=== PATIENT | female | born 1950 | race Caucasian/White ===

== ENCOUNTER 2020-10-30 01:04 | Inpatient (IN) | payer MEDICARE ==
[2020-10-30] MEDS ORDERED: Norepinephrine 8 MG/0.9% NS 250 ML ONE (01:12)
[2020-10-30 01:39] LABS: O2 Tension (PaO2), arterial 235.1 mmHg (> 70.0); pH, Arterial 6.77 (7.35-7.45)
[2020-10-30 01:40] LABS: Actual Bicarbonate (HCO3a) 3.1 mEq/L (22-28); Base Excess (BEa) -30.5 mEq/L (-2.0 to +3.0); Carboxyhemoglobin (COHb) 0.1 gm% (0.0-3.0); Hemoglobin (Hb) 9.6 g/dL (12.0-16.0); Potassium - ABG Lab 5.27 mmol/L (3.70-5.30)
[2020-10-30 01:41] LABS: Analyzer IN Cardio ER; Calcium, Ionized (arterial) 1.03 mmol/L (1.12-1.30); Puncture Site RRA
[2020-10-30 02:07] LABS: ALT (SGPT) 23 U/L (8-55); AST (SGOT) 23 U/L (5-34); Albumin 2.4 g/dL (3.4-4.8); Alkaline Phosphatase 28 U/L (40-110); BUN (Urea Nitrogen) 109 mg/dL (9.8-20.1); Bilirubin, Total 0.3 mg/dL (0.2-1.2); Calc. Creatinine Clearance 0 mL/min (70-130); Calcium 7.3 mg/dL (7.8-10.44); Chloride 109 mmol/L (98-107); Globulin 2.4 g/dL (2.4-3.5); Glucose 146 mg/dL (80-115); Potassium 5.6 mmol/L (3.5-5.1); Protein, Total 4.8 g/dL (5.8-8.1); Sodium 145 mmol/L (136-145)
[2020-10-30 02:11] LABS: Carbon Dioxide Less than 8 mmol/L (23-31)
[2020-10-30] MEDS ORDERED: Ventilator Sedation Protocol 1 EACH FS SCH (02:14)
[2020-10-30] MEDS ORDERED: Norepinephrine 8 MG/0.9% NS 250 ML IVPB SCH (02:15)
[2020-10-30 02:29] LABS: HBSAg Index 0.25 S/CO (0-0.99); Hep B Core Total Ab Non-Reactive (NonReactive); Hep B Core Total Index 0.09 S/CO (0-0.79); Hep B Surf Ag Non-Reactive S/CO (NonReactive); Hep C IgG Ab Non-Reactive (NonReactive); Hep C Index 0.07 S/CO (0-0.79)
[2020-10-30] MEDS ORDERED: DISCONTINUE PREVIOUS NARCOTIC PAIN MEDICATIONS AND BENZODIAZEPINES FS SCH (02:30)
[2020-10-30] MEDS ORDERED: Fentanyl BOLUS 250 ML IVPB PRN (02:30)
[2020-10-30] MEDS ORDERED: Propofol BOLUS 1,000 MG/100 ML VIAL IV PRN (02:30)
[2020-10-30] MEDS ORDERED: Morphine 2 MG/ML VIAL SLOW IVP PRN (02:30)
[2020-10-30] MEDS ORDERED: Propofol 1,000 MG/100 ML VIAL IV PRN (02:30)
[2020-10-30] MEDS ORDERED: Electrolyte Replacement Protocol 1 EACH FS ONE (03:00)
[2020-10-30 03:51] LABS: HBSAB Concentration 8.78 mIU/mL
[2020-10-30] MEDS ORDERED: Ondansetron ODT 4 MG TAB SL PRN (04:00)
[2020-10-30] MEDS ORDERED: Ondansetron PF 4 MG/2 ML Vial IVP PRN (04:00)
[2020-10-30] MEDS ORDERED: Acetaminophen 325 MG TAB PO PRN (04:00)
[2020-10-30 04:31] LABS: Bilirubin Negative (Negative); Blood, Urine 2+ (Negative); Clarity Clear (Clear); Glucose, Urine (Dipstick) 50 mg/dL (Negative); Ketone, Urine 20 mg/dL (Negative); Leukocyte Negative Leu/uL (Negative); Nitrite Negative (Negative); Protein, Urine (Dipstick) 50 mg/dL (Neg-Trace); Urobilinogen Normal mg/dL (Less than 2); pH, Urine 5.5 (5.0-9.0)
[2020-10-30 04:32] LABS: Bacteria/HPF 1+ HPF (None Seen)
[2020-10-30 04:45] LABS: Creatinine, Urine Less than 20.00 mg/dL (47-110); Sodium, Urine 136 mmol/L (Not Available); Urea Nitrogen, Random Urine 150 mg/dl
[2020-10-30] MEDS ORDERED: Dextrose 50% Abboject 50 ML SYRINGE SLOW IVP PRN (05:27)
[2020-10-30] MEDS ORDERED: Dextrose 5% in Water 1,000 ML IV PRN (05:27)
[2020-10-30] MEDS ORDERED: HumaLOG 300 UNITS/3 ML VIAL SC PRN (05:27)
[2020-10-30] MEDS ORDERED: Lactated Ringer's 1,000 ML IV SCH (05:45)
[2020-10-30] MEDS ORDERED: Cefepime 2 GM in Sodium Chloride 0.9% 100 ML IVPB SCH (06:00)
[2020-10-30 06:18] LABS: Band 17 % (5-11); Hemoglobin 10.8 g/dL (12.0-16.0); Lymphocytes 11 % (21-51); MDiff Complete? YES; Mean Corpuscular HGB CONC 32.4 g/dL (32.0-36.0); Mean Corpuscular Hemoglobin 30.6 pg (27.0-31.0); Mean Corpuscular Volume 94.3 fL (78.0-98.0); Monocytes 5 % (0-10); Neutrophil 67 % (42-75); Platelet Count 357 thou/uL (130-400); Platelet Morphology Comment Appears Adequate; RBC Distribution Width 12.7 % (11.5-14.5); Red Blood Cell (RBC) Count 3.53 mill/uL (4.20-5.40); White Blood Cell (WBC) Count 16.7 thou/uL (4.8-10.8)
[2020-10-30 06:28] LABS: Lactic Acid 10.8 mmol/L (0.5-2.2)
[2020-10-30 07:04] LABS: ALT (SGPT) 35 U/L (8-55); AST (SGOT) 44 U/L (5-34); Albumin 3.4 g/dL (3.4-4.8); Alkaline Phosphatase 43 U/L (40-110); Anion Gap 33 mmol/L (10-20); BUN (Urea Nitrogen) 55 mg/dL (9.8-20.1); Bilirubin, Total 0.5 mg/dL (0.2-1.2); Calc. Creatinine Clearance 15 mL/min (70-130); Calcium 7.9 mg/dL (7.8-10.44); Carbon Dioxide 13 mmol/L (23-31); Chloride 100 mmol/L (98-107); Glucose 127 mg/dL (80-115); Potassium 4.1 mmol/L (3.5-5.1); Protein, Total 6.4 g/dL (5.8-8.1); Sodium 142 mmol/L (136-145)
[2020-10-30] MEDS: Fentanyl CADD 100 ML IV SCH (08:50)
[2020-10-30] MEDS ORDERED: Pantoprazole 40 MG VIAL IVP SCH ×2 (09:00→21:00)
[2020-10-30] MEDS: Lorazepam 2 MG/ML VIAL SLOW IVP PRN ×2 (10:48→12:34)
[2020-10-30] MEDS: Sodium Chloride 0.9% 1,000 ML IV SCH ×2 (10:51→17:10)
[2020-10-30] MEDS ORDERED: Sodium Chloride 0.9% 1,000 ML IV SCH ×2 (11:30→14:45)
[2020-10-30 11:37] LABS: Actual Bicarbonate (HCO3a) 6.5 mEq/L (22-28); Base Excess (BEa) -19.3 mEq/L (-2.0 to +3.0); Calcium, Ionized (arterial) 0.92 mmol/L (1.12-1.30); O2 Tension (PaO2), arterial 198.1 mmHg (> 70.0); pH, Arterial 7.22 (7.35-7.45)
[2020-10-30 11:38] LABS: CO2 Tension 16.4 mmHg (35.0-45.0); Puncture Site RRA
[2020-10-30] MEDS: Albumin 25% 25 GM/100 ML BOT IVPB SCH ×3 (11:49→23:49)
[2020-10-30] MEDS: Vasopressin 20 UNIT, Admixture Fee 1 EACH in Sodium Chloride 0.9% 50 ML IV SCH ×2 (14:54→17:43)
[2020-10-30] MEDS: Sodium Bicarbonate 150 MEQ in Dextrose 5% in Water 1,000 ML IV SCH ×2 (14:56→19:55)
[2020-10-30 15:05] LABS: Actual Bicarbonate (HCO3a) 7.4 mEq/L (22-28); Calcium, Ionized (arterial) 0.92 mmol/L (1.12-1.30); Carboxyhemoglobin (COHb) 0.3 gm% (0.0-3.0); Hemoglobin (Hb) 7.9 g/dL (12.0-16.0); O2 Tension (PaO2), arterial 147.5 mmHg (> 70.0); Potassium - ABG Lab 3.74 mmol/L (3.70-5.30)
[2020-10-30 15:09] LABS: CO2 Tension 17.2 mmHg (35.0-45.0); Puncture Site RBA; pH, Arterial 7.25 (7.35-7.45)
[2020-10-30] MEDS ORDERED: Hydrocortisone Sod Succ/PF 100 mg/2 ml Vial ONE ×2 (15:24)
[2020-10-30] MEDS: Hydrocortisone Sod Succ/PF 100 mg/2 ml Vial IVP SCH ×2 (15:48→23:57)
[2020-10-30] MEDS ORDERED: Hydrocortisone Sod Succ/PF 500 mg/4 ml Vial SLOW IVP SCH (16:00)
[2020-10-30] MEDS ORDERED: EPINEPHrine 4 MG in Dextrose 5% in Water 250 ML IV SCH (16:15)
[2020-10-30 18:00] LABS: #Lymphocytes 0.8 thou/uL (1.20-3.40); #Monocytes 1.1 thou/uL (0.11-0.59); #Neutrophils 9.8 thou/uL (1.40-6.50); %Eosinophils 0.1 % (0.0-10.0); %Lymphocytes 7.1 % (21.0-51.0); %Monocytes 9.6 % (0.0-10.0); %Neutrophils 83.2 % (42.0-75.0); Hemoglobin 7.9 g/dL (12.0-16.0); Mean Corpuscular HGB CONC 33.5 g/dL (32.0-36.0); Mean Corpuscular Hemoglobin 31.4 pg (27.0-31.0); Mean Corpuscular Volume 93.6 fL (78.0-98.0); Mean Platelet Volume 8.3 fL (7.4-10.4); Platelet Count 234 thou/uL (130-400); RBC Distribution Width 12.9 % (11.5-14.5); White Blood Cell (WBC) Count 11.8 thou/uL (4.8-10.8)
[2020-10-30 18:14] LABS: BUN (Urea Nitrogen) 53 mg/dL (9.8-20.1); Calc. Creatinine Clearance 12 mL/min (70-130); Calcium 6.4 mg/dL (7.8-10.44); Carbon Dioxide Less than 8 mmol/L (23-31); Chloride 101 mmol/L (98-107); Glucose 271 mg/dL (80-115); Potassium 4.2 mmol/L (3.5-5.1); Sodium 138 mmol/L (136-145)
[2020-10-30] MEDS ORDERED: Sodium Bicarb 50 MEQ/50 ML Abboject 8.4% SYRINGE IVP SCH (18:30)
[2020-10-30] MEDS ORDERED: Sodium Bicarb 50 MEQ/50 ML Abboject 8.4% SYRINGE ONE ×2 (18:31→18:37)
[2020-10-30] MEDS: Pantoprazole 40 MG VIAL IVP SCH (20:04)
[2020-10-30 21:04] LABS: Lactic Acid 8.2 mmol/L (0.5-2.2)
[2020-10-30 21:32] LABS: Vancomycin, Random Less than 1.1 ug/mL (See Comment)
[2020-10-30] MEDS ORDERED: Vancomycin 1 GM in Premix Bag 1 BAG IVPB SCH (22:00)
[2020-10-30] MEDS ORDERED: Vancomycin HCl 1 GM in Premix Bag 1 BAG IVPB SCH (22:00)
[2020-10-30] MEDS: Cefepime 1 GM in Sodium Chloride 0.9% 100 ML IVPB SCH (23:57)
[2020-10-31] MEDS: Vasopressin 20 UNIT, Admixture Fee 1 EACH in Sodium Chloride 0.9% 50 ML IV SCH (00:20)
[2020-10-31] MEDS: HumaLOG 300 UNITS/3 ML VIAL SC PRN ×6 (00:57→20:48)
[2020-10-31] MEDS: Sodium Bicarbonate 150 MEQ in Dextrose 5% in Water 1,000 ML IV SCH ×2 (02:17→08:10)
[2020-10-31 02:38] LABS: #Basophils 0.1 thou/uL (0.0-0.2); #Lymphocytes 0.9 thou/uL (1.20-3.40); #Monocytes 0.5 thou/uL (0.11-0.59); #Neutrophils 7.3 thou/uL (1.40-6.50); %Basophils 0.9 % (0.0-1.0); %Lymphocytes 10.4 % (21.0-51.0); %Monocytes 6.2 % (0.0-10.0); %Neutrophils 82.5 % (42.0-75.0); Hemoglobin 8.4 g/dL (12.0-16.0); Mean Corpuscular HGB CONC 34.3 g/dL (32.0-36.0); Mean Corpuscular Hemoglobin 31.1 pg (27.0-31.0); Mean Corpuscular Volume 90.9 fL (78.0-98.0); Mean Platelet Volume 8.6 fL (7.4-10.4); Platelet Count 195 thou/uL (130-400); RBC Distribution Width 12.9 % (11.5-14.5); Red Blood Cell (RBC) Count 2.71 mill/uL (4.20-5.40); White Blood Cell (WBC) Count 8.8 thou/uL (4.8-10.8)
[2020-10-31 03:05] LABS: ALT (SGPT) 28 U/L (8-55); AST (SGOT) 33 U/L (5-34); Albumin 3.4 g/dL (3.4-4.8); Alkaline Phosphatase 25 U/L (40-110); Anion Gap 34 mmol/L (10-20); BUN (Urea Nitrogen) 58 mg/dL (9.8-20.1); Bilirubin, Total 0.5 mg/dL (0.2-1.2); Calc. Creatinine Clearance 12 mL/min (70-130); Carbon Dioxide 14 mmol/L (23-31); Chloride 92 mmol/L (98-107); Globulin 1.5 g/dL (2.4-3.5); Glucose 458 mg/dL (80-115); Potassium 3.2 mmol/L (3.5-5.1); Protein, Total 4.9 g/dL (5.8-8.1); Sodium 137 mmol/L (136-145)
[2020-10-31] MEDS: Albumin 25% 25 GM/100 ML BOT IVPB SCH ×2 (05:43→11:36)
[2020-10-31 07:04] LABS: Base Excess (BEa) 1.8 mEq/L (-2.0 to +3.0); Calcium, Ionized (arterial) 0.73 mmol/L (1.12-1.30); Carboxyhemoglobin (COHb) 0.3 gm% (0.0-3.0); O2 Tension (PaO2), arterial 99.3 mmHg (> 70.0); Potassium - ABG Lab 2.67 mmol/L (3.70-5.30)
[2020-10-31 08:01] LABS: ALV-art Gradient 162.525 mmHg (0-20); CO2 Tension 18.7 mmHg (35.0-45.0); Puncture Site Arterial Line; pH, Arterial 7.67 (7.35-7.45)
[2020-10-31] MEDS: Hydrocortisone Sod Succ/PF 100 mg/2 ml Vial IVP SCH ×3 (09:13→23:53)
[2020-10-31] MEDS: Pantoprazole 40 MG VIAL IVP SCH ×2 (09:23→20:42)
[2020-10-31] MEDS: Sodium Chloride 0.45% 1,000 ML IV SCH ×2 (11:29→20:41)
[2020-10-31 14:46] LABS: Lactic Acid 9.9 mmol/L (0.5-2.2)
[2020-10-31] MEDS: Lorazepam 2 MG/ML VIAL SLOW IVP PRN (15:27)
[2020-10-31 21:22] LABS: Vancomycin, Random 12.3 ug/mL (See Comment)
[2020-10-31] MEDS ORDERED: Vancomycin 1 GM in Premix Bag 1 BAG IVPB SCH (22:00)
[2020-10-31] MEDS: Cefepime 1 GM in Sodium Chloride 0.9% 100 ML IVPB SCH (23:00)
[2020-11-01] MEDS: HumaLOG 300 UNITS/3 ML VIAL SC PRN ×6 (00:15→22:25)
[2020-11-01] MEDS: Lorazepam 2 MG/ML VIAL SLOW IVP PRN ×4 (01:06→22:06)
[2020-11-01 03:40] LABS: #Lymphocytes 0.7 thou/uL (1.20-3.40); #Monocytes 0.7 thou/uL (0.11-0.59); #Neutrophils 7.8 thou/uL (1.40-6.50); %Basophils 0.1 % (0.0-1.0); %Lymphocytes 7.4 % (21.0-51.0); %Neutrophils 84.5 % (42.0-75.0); Hemoglobin 8.6 g/dL (12.0-16.0); Mean Corpuscular Hemoglobin 31.5 pg (27.0-31.0); Mean Platelet Volume 8.5 fL (7.4-10.4); Platelet Count 171 thou/uL (130-400); RBC Distribution Width 12.7 % (11.5-14.5); Red Blood Cell (RBC) Count 2.72 mill/uL (4.20-5.40); White Blood Cell (WBC) Count 9.2 thou/uL (4.8-10.8)
[2020-11-01 04:00] LABS: ALT (SGPT) 80 U/L (8-55); AST (SGOT) 131 U/L (5-34); Albumin 3.8 g/dL (3.4-4.8); Alkaline Phosphatase 26 U/L (40-110); Anion Gap 20 mmol/L (10-20); BUN (Urea Nitrogen) 62 mg/dL (9.8-20.1); Bilirubin, Total 0.7 mg/dL (0.2-1.2); Calc. Creatinine Clearance 13 mL/min (70-130); Calcium 6.1 mg/dL (7.8-10.44); Carbon Dioxide 33 mmol/L (23-31); Chloride 89 mmol/L (98-107); Globulin 1.7 g/dL (2.4-3.5); Glucose 181 mg/dL (80-115); Protein, Total 5.5 g/dL (5.8-8.1); Sodium 139 mmol/L (136-145)
[2020-11-01 04:08] LABS: Potassium 2.6 mmol/L (3.5-5.1)
[2020-11-01] MEDS: Sodium Chloride 0.45% 1,000 ML IV SCH ×3 (06:38→21:21)
[2020-11-01 08:00] LABS: Actual Bicarbonate (HCO3a) 30.1 mEq/L (22-28); Base Excess (BEa) 8.6 mEq/L (-2.0 to +3.0); CO2 Tension 29.7 mmHg (35.0-45.0); Calcium, Ionized (arterial) 0.66 mmol/L (1.12-1.30); Carboxyhemoglobin (COHb) 0.3 gm% (0.0-3.0); Hemoglobin (Hb) 8.8 g/dL (12.0-16.0); O2 Tension (PaO2), arterial 133.9 mmHg (> 70.0); Potassium - ABG Lab 2.78 mmol/L (3.70-5.30)
[2020-11-01] MEDS: Hydrocortisone Sod Succ/PF 100 mg/2 ml Vial IVP SCH ×3 (08:00→23:12)
[2020-11-01] MEDS: Pantoprazole 40 MG VIAL IVP SCH ×2 (08:00→20:33)
[2020-11-01 08:05] LABS: pH, Arterial 7.62 (7.35-7.45)
[2020-11-01 08:06] LABS: ALV-art Gradient 114.175 mmHg (0-20); Puncture Site Arterial Line
[2020-11-01] MEDS ORDERED: Potassium Chloride 20 MEQ TAB PO SCH (09:15)
[2020-11-01 10:25] LABS: Potassium 3.6 mmol/L (3.5-5.1)
[2020-11-01 10:59] LABS: Platelet Count 150 thou/uL (130-400)
[2020-11-01] MEDS ORDERED: Potassium Chloride 10 MEQ in Premix Bag 1 BAG IVPB SCH (11:00)
[2020-11-01 11:08] LABS: Fibrinogen 199 mg/dL (253-463); INR-International Normal Ratio 1.3; PTT 30.3 sec (22.9-36.1); Prothrombin Time 16.7 sec (12.0-14.7)
[2020-11-01 11:17] LABS: D-Dimer Test 13.01 *mcg/mL (0.27-0.43)
[2020-11-01] MEDS ORDERED: Fentanyl CADD 100 ML ONE (12:28)
[2020-11-01] MEDS: Fentanyl CADD 100 ML IV SCH (12:32)
[2020-11-01 12:49] LABS: FSP-Qualitative ABNORMAL (Normal); FSP-Semiquantitative >=20 & <40 mcg/mL (Less than 5)
[2020-11-01 14:49] LABS: Potassium 2.8 mmol/L (3.5-5.1)
[2020-11-01] MEDS ORDERED: Potassium Bicarbonate/Cit Ac 20 MEQ TAB PO SCH (16:00)
[2020-11-01 18:25] LABS: Magnesium 1.3 mg/dL (1.6-2.6); Potassium 3.1 mmol/L (3.5-5.1)
[2020-11-01] MEDS: Heparin 5,000 UNITS/ML VIAL SC SCH (21:19)
[2020-11-01 22:34] LABS: Vancomycin, Random 15.8 ug/mL (See Comment)
[2020-11-01] MEDS ORDERED: Vancomycin HCl 750 MG in Sodium Chloride 0.9% 250 ML 250 ML IVPB SCH (23:00)
[2020-11-01] MEDS: Cefepime 1 GM in Sodium Chloride 0.9% 100 ML IVPB SCH (23:19)
[2020-11-02] MEDS: HumaLOG 300 UNITS/3 ML VIAL SC PRN ×6 (00:23→21:41)
[2020-11-02 04:36] LABS: #Basophils 0.1 thou/uL (0.0-0.2); #Lymphocytes 0.5 thou/uL (1.20-3.40); #Monocytes 0.4 thou/uL (0.11-0.59); #Neutrophils 7.3 thou/uL (1.40-6.50); %Basophils 1.1 % (0.0-1.0); %Lymphocytes 5.5 % (21.0-51.0); %Monocytes 4.8 % (0.0-10.0); %Neutrophils 88.7 % (42.0-75.0); Hemoglobin 8.1 g/dL (12.0-16.0); Mean Corpuscular HGB CONC 34.1 g/dL (32.0-36.0); Mean Corpuscular Hemoglobin 31.4 pg (27.0-31.0); Mean Corpuscular Volume 92.1 fL (78.0-98.0); Mean Platelet Volume 8.2 fL (7.4-10.4); Platelet Count 142 thou/uL (130-400); RBC Distribution Width 12.6 % (11.5-14.5); Red Blood Cell (RBC) Count 2.58 mill/uL (4.20-5.40); White Blood Cell (WBC) Count 8.2 thou/uL (4.8-10.8)
[2020-11-02 04:49] LABS: ALT (SGPT) 89 U/L (8-55); AST (SGOT) 101 U/L (5-34); Albumin 3.8 g/dL (3.4-4.8); Alkaline Phosphatase 35 U/L (40-110); Anion Gap 14 mmol/L (10-20); BUN (Urea Nitrogen) 50 mg/dL (9.8-20.1); Bilirubin, Total 0.6 mg/dL (0.2-1.2); Calc. Creatinine Clearance 19 mL/min (70-130); Carbon Dioxide 33 mmol/L (23-31); Chloride 94 mmol/L (98-107); Glucose 233 mg/dL (80-115); Protein, Total 5.8 g/dL (5.8-8.1); Sodium 138 mmol/L (136-145)
[2020-11-02 04:52] LABS: Calcium 5.5 mg/dL (7.8-10.44); Potassium 2.7 mmol/L (3.5-5.1)
[2020-11-02] MEDS ORDERED: Potassium Chloride 40 MEQ in Premix Bag 1 BAG IVPB SCH ×2 (05:00→15:45)
[2020-11-02] MEDS ORDERED: Calcium Gluc 4.6 MEQ/10 ML (100 MG/ML) SLOW IVP SCH (05:00)
[2020-11-02] MEDS ORDERED: Vancomycin HCl 500 MG in Sodium Chloride 0.9% 100 ML IVPB SCH (05:15)
[2020-11-02] MEDS ORDERED: Magnesium 2 GM/50 ML 2 GM in Premix Bag 1 BAG IVPB SCH (07:00)
[2020-11-02 07:28] LABS: Actual Bicarbonate (HCO3a) 32.3 mEq/L (22-28); Base Excess (BEa) 8.2 mEq/L (-2.0 to +3.0); CO2 Tension 43.2 mmHg (35.0-45.0); Calcium, Ionized (arterial) 0.75 mmol/L (1.12-1.30); Carboxyhemoglobin (COHb) 0.3 gm% (0.0-3.0); Hemoglobin (Hb) 8.8 g/dL (12.0-16.0); O2 Tension (PaO2), arterial 123.8 mmHg (> 70.0); Potassium - ABG Lab 3.02 mmol/L (3.70-5.30); pH, Arterial 7.49 (7.35-7.45)
[2020-11-02 07:29] LABS: Puncture Site LRA
[2020-11-02] MEDS: Hydrocortisone Sod Succ/PF 100 mg/2 ml Vial IVP SCH ×3 (08:01→23:18)
[2020-11-02] MEDS: Heparin 5,000 UNITS/ML VIAL SC SCH ×2 (08:01→19:48)
[2020-11-02] MEDS: Pantoprazole 40 MG VIAL IVP SCH ×2 (08:02→19:48)
[2020-11-02] MEDS: Sodium Chloride 0.45% 1,000 ML IV SCH ×2 (09:39→18:10)
[2020-11-02 15:06] LABS: Potassium 2.3 mmol/L (3.5-5.1)
[2020-11-02] MEDS: Lorazepam 2 MG/ML VIAL SLOW IVP PRN ×2 (19:30→21:39)
[2020-11-02] MEDS ORDERED: Fentanyl CADD 100 ML ONE (19:39)
[2020-11-02] MEDS: Fentanyl CADD 100 ML IV SCH (19:47)
[2020-11-02] MEDS: Sodium Chloride 0.9% (PF) 10 ML VIAL FS PRN (19:48)
[2020-11-02] MEDS: Potassium Chloride 40 MEQ in Premix Bag 1 BAG IVPB SCH (19:51)
[2020-11-02 20:45] LABS: Potassium 2.9 mmol/L (3.5-5.1)
[2020-11-02 22:30] LABS: Vancomycin, Random 15.2 ug/mL (See Comment)
[2020-11-02] MEDS ORDERED: Vancomycin HCl 750 MG in Sodium Chloride 0.9% 250 ML 250 ML IVPB SCH (23:00)
[2020-11-02] MEDS: Cefepime 1 GM in Sodium Chloride 0.9% 100 ML IVPB SCH (23:18)
[2020-11-03 05:48] LABS: Anion Gap 13 mmol/L (10-20); BUN (Urea Nitrogen) 40 mg/dL (9.8-20.1); Calc. Creatinine Clearance 32 mL/min (70-130); Carbon Dioxide 28 mmol/L (23-31); Chloride 103 mmol/L (98-107); Glucose 248 mg/dL (80-115); Sodium 141 mmol/L (136-145)
[2020-11-03 05:50] LABS: Calcium 5.7 mg/dL (7.8-10.44); Potassium 2.8 mmol/L (3.5-5.1)
[2020-11-03] MEDS: Lorazepam 2 MG/ML VIAL SLOW IVP PRN (06:38)
[2020-11-03] MEDS: Sodium Chloride 0.45% 1,000 ML IV SCH ×2 (06:40→17:47)
[2020-11-03] MEDS: HumaLOG 300 UNITS/3 ML VIAL SC PRN ×4 (06:50→20:43)
[2020-11-03] MEDS: Heparin 5,000 UNITS/ML VIAL SC SCH ×2 (08:30→20:41)
[2020-11-03] MEDS: Hydrocortisone Sod Succ/PF 100 mg/2 ml Vial IVP SCH ×2 (08:30→16:09)
[2020-11-03] MEDS: Pantoprazole 40 MG VIAL IVP SCH ×2 (08:32→20:42)
[2020-11-03] MEDS: Potassium Chloride 40 MEQ in Premix Bag 1 BAG IVPB SCH ×2 (08:33→20:52)
[2020-11-03] MEDS: Haloperidol Lactate 5 MG/ML VIAL IM SCH ×2 (16:09→20:41)
[2020-11-03] MEDS: Sodium Chloride 0.9% (PF) 10 ML VIAL FS PRN (20:42)
[2020-11-04] MEDS: Hydrocortisone Sod Succ/PF 100 mg/2 ml Vial IVP SCH ×3 (00:51→15:26)
[2020-11-04] MEDS: Cefepime 1 GM in Sodium Chloride 0.9% 100 ML IVPB SCH (00:51)
[2020-11-04] MEDS: Haloperidol Lactate 5 MG/ML VIAL IM SCH ×4 (02:54→20:30)
[2020-11-04 06:53] LABS: #Lymphocytes 0.5 thou/uL (1.20-3.40); #Monocytes 0.7 thou/uL (0.11-0.59); %Eosinophils 0.1 % (0.0-10.0); %Lymphocytes 4.2 % (21.0-51.0); %Monocytes 5.4 % (0.0-10.0); %Neutrophils 90.3 % (42.0-75.0); Hemoglobin 8.6 g/dL (12.0-16.0); Mean Corpuscular HGB CONC 33.1 g/dL (32.0-36.0); Mean Corpuscular Hemoglobin 31.2 pg (27.0-31.0); Mean Corpuscular Volume 94.4 fL (78.0-98.0); Mean Platelet Volume 9.2 fL (7.4-10.4); Platelet Count 175 thou/uL (130-400); RBC Distribution Width 12.8 % (11.5-14.5); Red Blood Cell (RBC) Count 2.76 mill/uL (4.20-5.40); White Blood Cell (WBC) Count 12.1 thou/uL (4.8-10.8)
[2020-11-04 07:03] LABS: Anion Gap 13 mmol/L (10-20); BUN (Urea Nitrogen) 39 mg/dL (9.8-20.1); Calc. Creatinine Clearance 40 mL/min (70-130); Carbon Dioxide 29 mmol/L (23-31); Chloride 102 mmol/L (98-107); Glucose 223 mg/dL (80-115); Potassium 3.4 mmol/L (3.5-5.1); Sodium 141 mmol/L (136-145)
[2020-11-04 07:06] LABS: Calcium 5.6 mg/dL (7.8-10.44)
[2020-11-04] MEDS: Fentanyl CADD 100 ML IV SCH (07:06)
[2020-11-04] MEDS: HumaLOG 300 UNITS/3 ML VIAL SC PRN ×4 (07:10→20:32)
[2020-11-04] MEDS: Heparin 5,000 UNITS/ML VIAL SC SCH ×2 (08:38→20:30)
[2020-11-04] MEDS: Pantoprazole 40 MG VIAL IVP SCH (08:38)
[2020-11-04] MEDS: Potassium Chloride 40 MEQ in Premix Bag 1 BAG IVPB SCH ×2 (08:39→20:30)
[2020-11-04] MEDS: Lorazepam 2 MG/ML VIAL SLOW IVP PRN ×2 (09:12→13:30)
[2020-11-04] MEDS: Sodium Chloride 0.45% 1,000 ML IV SCH ×2 (12:12→20:41)
[2020-11-04] MEDS: Pantoprazole 40 MG GRANULES PACKET PER TUBE SCH (20:30)
[2020-11-05] MEDS: Lorazepam 2 MG/ML VIAL SLOW IVP PRN ×3 (00:56→10:08)
[2020-11-05] MEDS: Cefepime 1 GM in Sodium Chloride 0.9% 100 ML IVPB SCH (00:57)
[2020-11-05] MEDS: Hydrocortisone Sod Succ/PF 100 mg/2 ml Vial IVP SCH ×3 (00:57→21:37)
[2020-11-05] MEDS: HumaLOG 300 UNITS/3 ML VIAL SC PRN ×5 (01:27→21:50)
[2020-11-05] MEDS: Haloperidol Lactate 5 MG/ML VIAL IM SCH ×2 (03:56→08:35)
[2020-11-05 04:28] LABS: #Lymphocytes 0.8 thou/uL (1.20-3.40); #Monocytes 0.5 thou/uL (0.11-0.59); #Neutrophils 8.8 thou/uL (1.40-6.50); %Basophils 0.1 % (0.0-1.0); %Lymphocytes 7.4 % (21.0-51.0); %Monocytes 4.8 % (0.0-10.0); %Neutrophils 87.7 % (42.0-75.0); Hemoglobin 8.7 g/dL (12.0-16.0); Mean Corpuscular HGB CONC 31.9 g/dL (32.0-36.0); Mean Corpuscular Hemoglobin 30.2 pg (27.0-31.0); Mean Corpuscular Volume 94.6 fL (78.0-98.0); Platelet Count 187 thou/uL (130-400); Red Blood Cell (RBC) Count 2.87 mill/uL (4.20-5.40)
[2020-11-05 04:41] LABS: Anion Gap 10 mmol/L (10-20); BUN (Urea Nitrogen) 33 mg/dL (9.8-20.1); Calc. Creatinine Clearance 61 mL/min (70-130); Carbon Dioxide 31 mmol/L (23-31); Chloride 106 mmol/L (98-107); Glucose 202 mg/dL (80-115); Magnesium 1.1 mg/dL (1.6-2.6); Potassium 3.2 mmol/L (3.5-5.1); Sodium 144 mmol/L (136-145)
[2020-11-05 04:45] LABS: Calcium 5.5 mg/dL (7.8-10.44)
[2020-11-05] MEDS ORDERED: Calcium Gluconate 4.6 MEQ in Sodium Chloride 0.9% 100 ML IVPB SCH (06:30)
[2020-11-05] MEDS: Heparin 5,000 UNITS/ML VIAL SC SCH ×2 (08:35→21:37)
[2020-11-05] MEDS: Potassium Chloride 40 MEQ in Premix Bag 1 BAG IVPB SCH ×2 (08:36→21:36)
[2020-11-05] MEDS: Pantoprazole 40 MG GRANULES PACKET PER TUBE SCH ×2 (08:37→21:37)
[2020-11-05] MEDS ORDERED: Fentanyl CADD 100 ML ONE (09:55)
[2020-11-05] MEDS: Sodium Chloride 0.45% 1,000 ML IV SCH (10:17)
[2020-11-05] MEDS ORDERED: Magnesium 2 GM/50 ML 2 GM in Premix Bag 1 BAG IVPB SCH (18:00)
[2020-11-05] MEDS ORDERED: Potassium Chloride 40 MEQ in Sodium Chloride 0.9% 250 ML 250 ML IVPB SCH (22:30)
[2020-11-06] MEDS: Lorazepam 2 MG/ML VIAL SLOW IVP PRN ×5 (00:07→21:18)
[2020-11-06] MEDS: Cefepime 1 GM in Sodium Chloride 0.9% 100 ML IVPB SCH ×2 (00:09→23:43)
[2020-11-06] MEDS: HumaLOG 300 UNITS/3 ML VIAL SC PRN ×3 (00:24→15:28)
[2020-11-06 05:11] LABS: Hemoglobin 8.3 g/dL (12.0-16.0); Mean Corpuscular HGB CONC 31.5 g/dL (32.0-36.0); Mean Corpuscular Hemoglobin 29.4 pg (27.0-31.0); Mean Corpuscular Volume 93.3 fL (78.0-98.0); Platelet Count 237 thou/uL (130-400); RBC Distribution Width 12.9 % (11.5-14.5); Red Blood Cell (RBC) Count 2.83 mill/uL (4.20-5.40); White Blood Cell (WBC) Count 10.5 thou/uL (4.8-10.8)
[2020-11-06 05:31] LABS: Anion Gap 12 mmol/L (10-20); BUN (Urea Nitrogen) 31 mg/dL (9.8-20.1); Calc. Creatinine Clearance 69 mL/min (70-130); Carbon Dioxide 29 mmol/L (23-31); Chloride 109 mmol/L (98-107); Glucose 137 mg/dL (80-115); Magnesium 1.2 mg/dL (1.6-2.6); Potassium 3.5 mmol/L (3.5-5.1); Sodium 146 mmol/L (136-145)
[2020-11-06 05:37] LABS: Band 2 % (5-11); Lymphocytes 6 % (21-51); MDiff Complete? YES; Monocytes 7 % (0-10); Neutrophil 85 % (42-75); Nucleated RBC 2 % (0)
[2020-11-06 05:48] LABS: Calcium 5.5 mg/dL (7.8-10.44)
[2020-11-06] MEDS: Sodium Chloride 0.45% 1,000 ML IV SCH (06:12)
[2020-11-06] MEDS ORDERED: Calcium Gluconate 4.6 MEQ in Sodium Chloride 0.9% 100 ML IVPB SCH ×2 (08:06→18:45)
[2020-11-06] MEDS ORDERED: Magnesium 2 GM/50 ML 4 GM in Premix Bag 1 BAG IVPB SCH (08:15)
[2020-11-06] MEDS ORDERED: Magnesium Sulfate 4 GM in Sodium Chloride 0.9% 250 ML 250 ML IVPB SCH (08:15)
[2020-11-06] MEDS: Heparin 5,000 UNITS/ML VIAL SC SCH ×2 (08:26→20:34)
[2020-11-06] MEDS: Hydrocortisone Sod Succ/PF 100 mg/2 ml Vial IVP SCH ×2 (08:26→20:32)
[2020-11-06] MEDS: Pantoprazole 40 MG GRANULES PACKET PER TUBE SCH ×2 (08:26→20:34)
[2020-11-06] MEDS: Potassium Chloride 40 MEQ in Sodium Chloride 0.9% 250 ML 250 ML IVPB SCH ×2 (12:58→21:18)
[2020-11-06 17:51] LABS: Potassium 3.5 mmol/L (3.5-5.1)
[2020-11-06 18:17] LABS: Calcium 5.6 mg/dL (7.8-10.44)
[2020-11-06 18:17] LABS: Phosphorus 2.2 mg/dL (2.3-4.7)
[2020-11-06] MEDS: NPH, Human Insulin Isophane 300 UNIT/3 ML VIAL SC SCH (20:34)
[2020-11-07] MEDS: HumaLOG 300 UNITS/3 ML VIAL SC PRN ×5 (04:20→21:34)
[2020-11-07 04:51] LABS: Anion Gap 12 mmol/L (10-20); BUN (Urea Nitrogen) 28 mg/dL (9.8-20.1); Calc. Creatinine Clearance 68 mL/min (70-130); Carbon Dioxide 26 mmol/L (23-31); Chloride 110 mmol/L (98-107); Glucose 207 mg/dL (80-115); Potassium 3.2 mmol/L (3.5-5.1); Sodium 145 mmol/L (136-145)
[2020-11-07 04:55] LABS: Calcium 5.6 mg/dL (7.8-10.44)
[2020-11-07 05:27] LABS: Band 13 % (5-11); Hemoglobin 9.2 g/dL (12.0-16.0); Lymphocytes 8 % (21-51); MDiff Complete? YES; Mean Corpuscular HGB CONC 32.9 g/dL (32.0-36.0); Mean Corpuscular Hemoglobin 30.7 pg (27.0-31.0); Mean Corpuscular Volume 93.2 fL (78.0-98.0); Mean Platelet Volume 8.7 fL (7.4-10.4); Monocytes 1 % (0-10); Neutrophil 78 % (42-75); Platelet Count 250 thou/uL (130-400); RBC Distribution Width 13.2 % (11.5-14.5); Red Blood Cell (RBC) Count 3.01 mill/uL (4.20-5.40); White Blood Cell (WBC) Count 8.5 thou/uL (4.8-10.8)
[2020-11-07] MEDS: Morphine 4 MG/ML VIAL SLOW IVP PRN ×2 (05:36→20:12)
[2020-11-07 07:17] LABS: Actual Bicarbonate (HCO3a) 27.7 mEq/L (22-28); Base Excess (BEa) 4.6 mEq/L (-2.0 to +3.0); CO2 Tension 34.9 mmHg (35.0-45.0); Calcium, Ionized (arterial) 0.73 mmol/L (1.12-1.30); Carboxyhemoglobin (COHb) 0.1 gm% (0.0-3.0); O2 Tension (PaO2), arterial 81.2 mmHg (> 70.0); Potassium - ABG Lab 3.22 mmol/L (3.70-5.30); pH, Arterial 7.52 (7.35-7.45)
[2020-11-07 07:19] LABS: ALV-art Gradient 160.375 mmHg (0-20); Puncture Site RRA
[2020-11-07] MEDS ORDERED: Potassium Chloride 20 MEQ TAB PO SCH (07:30)
[2020-11-07] MEDS ORDERED: Calcium Gluconate 4.6 MEQ in Sodium Chloride 0.9% 100 ML IVPB SCH (07:30)
[2020-11-07] MEDS: Hydrocortisone Sod Succ/PF 100 mg/2 ml Vial IVP SCH (08:23)
[2020-11-07] MEDS: Heparin 5,000 UNITS/ML VIAL SC SCH ×2 (08:23→20:12)
[2020-11-07] MEDS: Pantoprazole 40 MG GRANULES PACKET PER TUBE SCH ×2 (08:23→20:13)
[2020-11-07] MEDS ORDERED: Cholecalciferol (Vitamin D3) 400 UNITS TAB PO SCH (09:00)
[2020-11-07] MEDS: Potassium Chloride 40 MEQ in Sodium Chloride 0.9% 250 ML 250 ML IVPB SCH ×2 (09:25→21:39)
[2020-11-07] MEDS ORDERED: Potassium Phosphate 15 MMOL in Sodium Chloride 0.9% 250 ML 250 ML IVPB PRN (11:05)
[2020-11-07 11:54] LABS: Magnesium 1.3 mg/dL (1.6-2.6); Phosphorus 1.6 mg/dL (2.3-4.7)
[2020-11-07] MEDS: Lorazepam 2 MG/ML VIAL SLOW IVP PRN ×4 (12:11→23:21)
[2020-11-07] MEDS ORDERED: Ergocalciferol 1.25 MG(50,000 UNITS) CAP PO SCH (12:45)
[2020-11-07] MEDS ORDERED: Calcium Carbonate 500 MG ChewTAB PER TUBE SCH (15:00)
[2020-11-07] MEDS: PHOS-NAK 1 PKT PACK PO SCH ×2 (16:43→20:13)
[2020-11-07 17:06] LABS: Magnesium 1.2 mg/dL (1.6-2.6)
[2020-11-07 17:12] LABS: Phosphorus 2.1 mg/dL (2.3-4.7); Potassium 3.5 mmol/L (3.5-5.1)
[2020-11-07 17:13] LABS: Calcium 5.7 mg/dL (7.8-10.44)
[2020-11-07] MEDS ORDERED: Magnesium Sulfate 4 GM in Sodium Chloride 0.9% 250 ML 250 ML IVPB SCH (17:45)
[2020-11-07] MEDS: Calcium Carbonate 500 MG ChewTAB PER TUBE SCH (20:13)
[2020-11-07] MEDS: NPH, Human Insulin Isophane 300 UNIT/3 ML VIAL SC SCH (21:30)
[2020-11-08] MEDS: Cefepime 1 GM in Sodium Chloride 0.9% 100 ML IVPB SCH ×2 (00:41→23:26)
[2020-11-08] MEDS: Morphine 4 MG/ML VIAL SLOW IVP PRN (02:57)
[2020-11-08] MEDS: HumaLOG 300 UNITS/3 ML VIAL SC PRN ×6 (04:34→23:27)
[2020-11-08 04:42] LABS: Anion Gap 13 mmol/L (10-20); BUN (Urea Nitrogen) 27 mg/dL (9.8-20.1); Calc. Creatinine Clearance 56 mL/min (70-130); Carbon Dioxide 27 mmol/L (23-31); Chloride 112 mmol/L (98-107); Glucose 257 mg/dL (80-115); Magnesium 1.7 mg/dL (1.6-2.6); Potassium 3.6 mmol/L (3.5-5.1); Sodium 148 mmol/L (136-145)
[2020-11-08 04:59] LABS: Phosphorus 1.8 mg/dL (2.3-4.7)
[2020-11-08 05:00] LABS: Calcium 5.4 mg/dL (7.8-10.44)
[2020-11-08] MEDS: Magnesium 2 GM/50 ML 2 GM in Premix Bag 1 BAG IVPB PRN (05:05)
[2020-11-08 05:08] LABS: Band 23 % (5-11); Hemoglobin 7.9 g/dL (12.0-16.0); Lymphocytes 2 % (21-51); MDiff Complete? YES; Mean Corpuscular HGB CONC 33.1 g/dL (32.0-36.0); Mean Corpuscular Hemoglobin 30.8 pg (27.0-31.0); Mean Corpuscular Volume 93.3 fL (78.0-98.0); Mean Platelet Volume 8.1 fL (7.4-10.4); Monocytes 6 % (0-10); Neutrophil 68 % (42-75); Nucleated RBC 1 % (0); Platelet Count 278 thou/uL (130-400); RBC Distribution Width 13.7 % (11.5-14.5); Red Blood Cell (RBC) Count 2.57 mill/uL (4.20-5.40); White Blood Cell (WBC) Count 12.6 thou/uL (4.8-10.8)
[2020-11-08] MEDS ORDERED: Calcium Gluconate 4.6 MEQ in Sodium Chloride 0.9% 100 ML IVPB SCH (08:21)
[2020-11-08] MEDS ORDERED: Sodium Phosphate 15 MMOL in Sodium Chloride 0.9% 250 ML 250 ML IVPB SCH (08:30)
[2020-11-08] MEDS: NPH, Human Insulin Isophane 300 UNIT/3 ML VIAL SC SCH ×2 (08:59→20:28)
[2020-11-08] MEDS: Calcium Carbonate 500 MG ChewTAB PER TUBE SCH ×4 (09:04→20:27)
[2020-11-08] MEDS: Hydrocortisone Sod Succ/PF 100 mg/2 ml Vial IVP SCH (09:05)
[2020-11-08] MEDS: Pantoprazole 40 MG GRANULES PACKET PER TUBE SCH (09:05)
[2020-11-08] MEDS: PHOS-NAK 1 PKT PACK PO SCH ×3 (09:05→20:28)
[2020-11-08] MEDS: Heparin 5,000 UNITS/ML VIAL SC SCH ×2 (09:05→20:28)
[2020-11-08] MEDS ORDERED: Polyethylene Glycol 3350 17 GM Packet PER TUBE PRN (10:20)
[2020-11-08] MEDS: Senokot S 8.6-50 MG TAB PO SCH ×2 (10:51→20:52)
[2020-11-08] MEDS: Potassium Chloride 40 MEQ in Sodium Chloride 0.9% 250 ML 250 ML IVPB SCH ×2 (15:12→20:52)
[2020-11-08] MEDS ORDERED: Metolazone 5 MG TAB PO SCH (16:00)
[2020-11-08] MEDS ORDERED: Calcitriol 0.25 MCG CAP PO SCH (16:15)
[2020-11-08 17:04] LABS: Anion Gap 15 mmol/L (10-20); BUN (Urea Nitrogen) 23 mg/dL (9.8-20.1); Calc. Creatinine Clearance 59 mL/min (70-130); Carbon Dioxide 25 mmol/L (23-31); Chloride 112 mmol/L (98-107); Glucose 286 mg/dL (80-115); Potassium 3.6 mmol/L (3.5-5.1); Sodium 148 mmol/L (136-145)
[2020-11-08 17:14] LABS: Calcium 5.7 mg/dL (7.8-10.44)
[2020-11-08] MEDS: Lorazepam 2 MG/ML VIAL SLOW IVP PRN (20:52)
[2020-11-08] MEDS ORDERED: Famotidine/PF 20 mg/2ml Vial SLOW IVP SCH (21:00)
[2020-11-08] MEDS ORDERED: Calcium Gluc 4.6 MEQ/10 ML (100 MG/ML) SLOW IVP SCH (21:30)
[2020-11-08] MEDS ORDERED: Magnesium 5 GM/10 ML Abboject SYRINGE SLOW IVP SCH (21:30)
[2020-11-09] MEDS: Lorazepam 2 MG/ML VIAL SLOW IVP PRN (02:02)
[2020-11-09 03:34] LABS: #Lymphocytes 0.7 thou/uL (1.20-3.40); #Monocytes 1.1 thou/uL (0.11-0.59); #Neutrophils 11.9 thou/uL (1.40-6.50); %Eosinophils 0.3 % (0.0-10.0); %Lymphocytes 5.2 % (21.0-51.0); %Monocytes 7.9 % (0.0-10.0); %Neutrophils 86.6 % (42.0-75.0); Hemoglobin 8.2 g/dL (12.0-16.0); Mean Corpuscular HGB CONC 32.5 g/dL (32.0-36.0); Mean Corpuscular Hemoglobin 30.8 pg (27.0-31.0); Mean Corpuscular Volume 94.8 fL (78.0-98.0); Mean Platelet Volume 7.9 fL (7.4-10.4); Platelet Count 254 thou/uL (130-400); RBC Distribution Width 13.7 % (11.5-14.5); Red Blood Cell (RBC) Count 2.66 mill/uL (4.20-5.40); White Blood Cell (WBC) Count 13.8 thou/uL (4.8-10.8)
[2020-11-09 03:54] LABS: ALT (SGPT) 30 U/L (8-55); AST (SGOT) 29 U/L (5-34); Alkaline Phosphatase 57 U/L (40-110); Anion Gap 15 mmol/L (10-20); BUN (Urea Nitrogen) 24 mg/dL (9.8-20.1); Bilirubin, Total 0.8 mg/dL (0.2-1.2); CK (CPK) 1340 U/L (29-168); Calc. Creatinine Clearance 55 mL/min (70-130); Calcium 6.5 mg/dL (7.8-10.44); Carbon Dioxide 26 mmol/L (23-31); Chloride 111 mmol/L (98-107); Globulin 2.6 g/dL (2.4-3.5); Glucose 266 mg/dL (80-115); Lipase 178 U/L (8-78); Potassium 3.5 mmol/L (3.5-5.1); Protein, Total 5.6 g/dL (5.8-8.1); Sodium 148 mmol/L (136-145)
[2020-11-09] MEDS: HumaLOG 300 UNITS/3 ML VIAL SC PRN ×3 (04:14→21:04)
[2020-11-09] MEDS ORDERED: Calcium Gluconate 9.2 MEQ in Sodium Chloride 0.9% 100 ML IVPB SCH (05:59)
[2020-11-09] MEDS: Morphine 4 MG/ML VIAL SLOW IVP PRN ×2 (08:11→12:35)
[2020-11-09] MEDS: Hydrocortisone Sod Succ/PF 100 mg/2 ml Vial IVP SCH (09:14)
[2020-11-09] MEDS: Senokot S 8.6-50 MG TAB PO SCH ×2 (09:17→20:56)
[2020-11-09] MEDS: PHOS-NAK 1 PKT PACK PO SCH ×3 (09:17→17:19)
[2020-11-09] MEDS: Calcitriol 0.25 MCG CAP PO SCH (09:17)
[2020-11-09] MEDS: Calcium Carbonate 500 MG ChewTAB PER TUBE SCH ×4 (09:17→20:56)
[2020-11-09] MEDS: Heparin 5,000 UNITS/ML VIAL SC SCH (09:18)
[2020-11-09] MEDS: NPH, Human Insulin Isophane 300 UNIT/3 ML VIAL SC SCH ×2 (09:19→21:01)
[2020-11-09] MEDS: Potassium Chloride 40 MEQ in Sodium Chloride 0.9% 250 ML 250 ML IVPB SCH ×2 (11:23→20:57)
[2020-11-09] MEDS: Acetaminophen 650 MG Suppository PR PRN (12:14)
[2020-11-09] MEDS ORDERED: SUGAMMADEX SODIUM 200 MG/2 ML VIAL ONE (14:06)
[2020-11-09] MEDS ORDERED: Fentanyl 100 MCG/2 ML VIAL ONE ×2 (14:06→14:10)
[2020-11-09] MEDS ORDERED: Lidocaine 1% w/Epinephrine 1:100K 20 ML VIAL ONE (14:18)
[2020-11-09] MEDS ORDERED: Bupivacaine PF 0.5% 30 ML VIAL ONE (14:18)
[2020-11-09] MEDS ORDERED: Midazolam HCl 5 mg/5 ml Vial ONE (14:19)
[2020-11-09] MEDS ORDERED: Rocuronium Bromide 10 MG/ML (10ML VIAL) ONE (14:45)
[2020-11-09] MEDS ORDERED: PHENYLEPHRINE-NS 100 MCG/ML 10 ML SYRINGE ONE (14:45)
[2020-11-09] MEDS ORDERED: Calcium Gluconate 4.6 MEQ in Sodium Chloride 0.9% 100 ML IVPB SCH (16:20)
[2020-11-09 17:04] LABS: Calcium 6.9 mg/dL (7.8-10.44); Magnesium 1.4 mg/dL (1.6-2.6)
[2020-11-09 17:05] LABS: Phosphorus 3.7 mg/dL (2.3-4.7)
[2020-11-09] MEDS ORDERED: Magnesium Oxide 400 MG TAB PO SCH (17:15)
[2020-11-09] MEDS: Famotidine/PF 20 mg/2ml Vial SLOW IVP SCH (20:56)
[2020-11-10] MEDS: HumaLOG 300 UNITS/3 ML VIAL SC PRN ×2 (00:17→12:15)
[2020-11-10] MEDS: Morphine 4 MG/ML VIAL SLOW IVP PRN ×2 (02:47→03:57)
[2020-11-10 06:39] LABS: Hemoglobin 7.3 g/dL (12.0-16.0); Mean Corpuscular Hemoglobin 30.2 pg (27.0-31.0); Mean Corpuscular Volume 94.4 fL (78.0-98.0); Platelet Count 230 thou/uL (130-400); RBC Distribution Width 13.9 % (11.5-14.5); White Blood Cell (WBC) Count 10.6 thou/uL (4.8-10.8)
[2020-11-10 06:50] LABS: Phosphorus 2.9 mg/dL (2.3-4.7)
[2020-11-10 06:53] LABS: Anion Gap 13 mmol/L (10-20); BUN (Urea Nitrogen) 22 mg/dL (9.8-20.1); Calc. Creatinine Clearance 61 mL/min (70-130); Calcium 7.1 mg/dL (7.8-10.44); Carbon Dioxide 29 mmol/L (23-31); Chloride 109 mmol/L (98-107); Glucose 139 mg/dL (80-115); Magnesium 1.3 mg/dL (1.6-2.6); Potassium 3.2 mmol/L (3.5-5.1); Sodium 148 mmol/L (136-145)
[2020-11-10 06:54] LABS: Band 19 % (5-11); Eosinophils 2 % (0-10); Lymphocytes 11 % (21-51); MDiff Complete? YES; Metamyelocyte 1 % (0-0); Monocytes 1 % (0-10); Neutrophil 66 % (42-75); Nucleated RBC 1 % (0)
[2020-11-10] MEDS: Potassium Chloride 40 MEQ in Sodium Chloride 0.9% 250 ML 250 ML IVPB SCH (08:12)
[2020-11-10] MEDS: Magnesium 2 GM/50 ML 2 GM in Premix Bag 1 BAG IVPB PRN (08:12)
[2020-11-10] MEDS: PHOS-NAK 1 PKT PACK PO SCH ×3 (08:13→21:44)
[2020-11-10] MEDS: Calcitriol 0.25 MCG CAP PO SCH (08:13)
[2020-11-10] MEDS: Calcium Carbonate 500 MG ChewTAB PER TUBE SCH ×4 (08:13→21:40)
[2020-11-10] MEDS: Senokot S 8.6-50 MG TAB PO SCH ×2 (08:13→21:44)
[2020-11-10] MEDS: NPH, Human Insulin Isophane 300 UNIT/3 ML VIAL SC SCH ×2 (08:14→21:43)
[2020-11-10] MEDS ORDERED: Magnesium 2 GM/50 ML 2 GM in Premix Bag 1 BAG IVPB SCH ×2 (08:30→15:45)
[2020-11-10] MEDS ORDERED: Potassium Chloride 40 MEQ in Sodium Chloride 0.9% 250 ML 250 ML IVPB SCH (08:30)
[2020-11-10] MEDS: Metolazone 5 MG TAB PO SCH (08:44)
[2020-11-10] MEDS ORDERED: Hydrocortisone Sod Succ/PF 100 mg/2 ml Vial IVP SCH (09:00)
[2020-11-10] MEDS ORDERED: Electrolyte Replacement Protocol FS PRN (10:00)
[2020-11-10] MEDS: ALPRAZolam 0.25 MG TAB PER TUBE SCH ×3 (13:04→21:41)
[2020-11-10 15:26] LABS: Anion Gap 13 mmol/L (10-20); BUN (Urea Nitrogen) 20 mg/dL (9.8-20.1); Calc. Creatinine Clearance 65 mL/min (70-130); Carbon Dioxide 30 mmol/L (23-31); Chloride 106 mmol/L (98-107); Glucose 186 mg/dL (80-115); Magnesium 1.5 mg/dL (1.6-2.6); Potassium 3.2 mmol/L (3.5-5.1); Sodium 146 mmol/L (136-145)
[2020-11-10 15:33] LABS: Potassium 3.1 mmol/L (3.5-5.1)
[2020-11-10] MEDS ORDERED: Potassium Chloride 20 MEQ TAB PO SCH (15:45)
[2020-11-10] MEDS: Famotidine/PF 20 mg/2ml Vial SLOW IVP SCH (21:41)
[2020-11-10] MEDS: Heparin 5,000 UNITS/ML VIAL SC SCH (21:41)
[2020-11-11] MEDS ORDERED: Magnesium 2 GM/50 ML 2 GM in Premix Bag 1 BAG IVPB SCH ×2 (07:00→08:45)
[2020-11-11] MEDS: Acetaminophen 650 MG Suppository PR PRN (07:19)
[2020-11-11] MEDS: PHOS-NAK 1 PKT PACK PO SCH ×3 (08:09→20:55)
[2020-11-11] MEDS: Metolazone 5 MG TAB PO SCH (08:09)
[2020-11-11] MEDS: Senokot S 8.6-50 MG TAB PO SCH ×2 (08:09→20:55)
[2020-11-11] MEDS: Calcium Carbonate 500 MG ChewTAB PER TUBE SCH ×4 (08:09→20:55)
[2020-11-11] MEDS: Calcitriol 0.25 MCG CAP PO SCH (08:09)
[2020-11-11] MEDS: ALPRAZolam 0.25 MG TAB PER TUBE SCH ×3 (08:10→16:58)
[2020-11-11] MEDS: Heparin 5,000 UNITS/ML VIAL SC SCH ×2 (08:10→20:55)
[2020-11-11 09:05] LABS: #Eosinphils 0.1 thou/uL (0.0-0.7); #Lymphocytes 0.9 thou/uL (1.20-3.40); #Monocytes 1.2 thou/uL (0.11-0.59); #Neutrophils 8.8 thou/uL (1.40-6.50); %Basophils 0.3 % (0.0-1.0); %Eosinophils 0.8 % (0.0-10.0); %Lymphocytes 8.4 % (21.0-51.0); %Neutrophils 79.6 % (42.0-75.0); Hemoglobin 7.3 g/dL (12.0-16.0); Mean Corpuscular HGB CONC 33.5 g/dL (32.0-36.0); Mean Corpuscular Hemoglobin 31.8 pg (27.0-31.0); Mean Corpuscular Volume 94.9 fL (78.0-98.0); Mean Platelet Volume 7.6 fL (7.4-10.4); Platelet Count 256 thou/uL (130-400); RBC Distribution Width 13.3 % (11.5-14.5); Red Blood Cell (RBC) Count 2.31 mill/uL (4.20-5.40)
[2020-11-11] MEDS: NPH, Human Insulin Isophane 300 UNIT/3 ML VIAL SC SCH (09:09)
[2020-11-11 09:26] LABS: ALT (SGPT) 24 U/L (8-55); AST (SGOT) 27 U/L (5-34); Albumin 2.8 g/dL (3.4-4.8); Alkaline Phosphatase 62 U/L (40-110); Anion Gap 18 mmol/L (10-20); BUN (Urea Nitrogen) 17 mg/dL (9.8-20.1); Bilirubin, Total 0.7 mg/dL (0.2-1.2); Calc. Creatinine Clearance 63 mL/min (70-130); Calcium 7.1 mg/dL (7.8-10.44); Carbon Dioxide 25 mmol/L (23-31); Chloride 103 mmol/L (98-107); Globulin 2.7 g/dL (2.4-3.5); Glucose 229 mg/dL (80-115); Protein, Total 5.5 g/dL (5.8-8.1); Sodium 143 mmol/L (136-145)
[2020-11-11 09:29] LABS: Potassium 2.8 mmol/L (3.5-5.1)
[2020-11-11] MEDS: Meropenem 2 GM, Admixture Fee 1 EACH in Sodium Chloride 0.9% 100 ML IVPB SCH ×2 (09:43→16:51)
[2020-11-11] MEDS ORDERED: Potassium Chloride 80 MEQ in Premix Bag 1 BAG IVPB SCH (10:15)
[2020-11-11] MEDS ORDERED: Potassium Chloride 40 MEQ in Premix Bag 1 BAG IVPB SCH (11:00)
[2020-11-11] MEDS: HumaLOG 300 UNITS/3 ML VIAL SC PRN (12:56)
[2020-11-11 17:22] LABS: Anion Gap 12 mmol/L (10-20); BUN (Urea Nitrogen) 14 mg/dL (9.8-20.1); Calc. Creatinine Clearance 68 mL/min (70-130); Calcium 7.2 mg/dL (7.8-10.44); Carbon Dioxide 30 mmol/L (23-31); Chloride 105 mmol/L (98-107); Glucose 155 mg/dL (80-115); Phosphorus 2.8 mg/dL (2.3-4.7); Potassium 3.6 mmol/L (3.5-5.1); Potassium 3.7 mmol/L (3.5-5.1); Sodium 143 mmol/L (136-145)
[2020-11-11] MEDS: Famotidine/PF 20 mg/2ml Vial SLOW IVP SCH (20:56)
[2020-11-12] MEDS: ALPRAZolam 0.25 MG TAB PER TUBE SCH ×5 (00:48→20:47)
[2020-11-12] MEDS: NPH, Human Insulin Isophane 300 UNIT/3 ML VIAL SC SCH ×3 (01:11→20:48)
[2020-11-12] MEDS: Meropenem 2 GM, Admixture Fee 1 EACH in Sodium Chloride 0.9% 100 ML IVPB SCH ×3 (01:12→17:19)
[2020-11-12] MEDS ORDERED: Magnesium 2 GM/50 ML 2 GM in Premix Bag 1 BAG IVPB SCH ×2 (06:30→13:15)
[2020-11-12] MEDS: HumaLOG 300 UNITS/3 ML VIAL SC PRN ×3 (06:51→16:55)
[2020-11-12] MEDS ORDERED: Metolazone 5 MG TAB PO SCH (08:15)
[2020-11-12] MEDS: Calcitriol 0.25 MCG CAP PO SCH (08:23)
[2020-11-12] MEDS: PHOS-NAK 1 PKT PACK PO SCH ×3 (08:23→20:49)
[2020-11-12] MEDS: Calcium Carbonate 500 MG ChewTAB PER TUBE SCH ×4 (08:23→20:49)
[2020-11-12] MEDS: Senokot S 8.6-50 MG TAB PO SCH ×2 (08:24→20:48)
[2020-11-12] MEDS: Famotidine/PF 20 mg/2ml Vial SLOW IVP SCH ×2 (08:24→20:50)
[2020-11-12] MEDS: Heparin 5,000 UNITS/ML VIAL SC SCH ×2 (08:24→20:49)
[2020-11-12] MEDS ORDERED: Furosemide 40 MG/4 ML VIAL SLOW IVP SCH (10:30)
[2020-11-12 11:25] LABS: #Eosinphils 0.1 thou/uL (0.0-0.7); #Lymphocytes 0.6 thou/uL (1.20-3.40); #Monocytes 0.7 thou/uL (0.11-0.59); #Neutrophils 6.8 thou/uL (1.40-6.50); %Basophils 0.2 % (0.0-1.0); %Eosinophils 0.8 % (0.0-10.0); %Lymphocytes 7.9 % (21.0-51.0); %Monocytes 7.9 % (0.0-10.0); %Neutrophils 83.2 % (42.0-75.0); Hemoglobin 8.4 g/dL (12.0-16.0); Mean Corpuscular Hemoglobin 29.8 pg (27.0-31.0); Mean Corpuscular Volume 93.2 fL (78.0-98.0); Mean Platelet Volume 7.4 fL (7.4-10.4); Platelet Count 266 thou/uL (130-400); RBC Distribution Width 13.3 % (11.5-14.5); Red Blood Cell (RBC) Count 2.82 mill/uL (4.20-5.40); White Blood Cell (WBC) Count 8.2 thou/uL (4.8-10.8)
[2020-11-12 11:45] LABS: ALT (SGPT) 32 U/L (8-55); AST (SGOT) 36 U/L (5-34); Albumin 2.7 g/dL (3.4-4.8); Alkaline Phosphatase 69 U/L (40-110); Anion Gap 14 mmol/L (10-20); BUN (Urea Nitrogen) 13 mg/dL (9.8-20.1); Bilirubin, Total 0.7 mg/dL (0.2-1.2); Calc. Creatinine Clearance 70 mL/min (70-130); Calcium 7.5 mg/dL (7.8-10.44); Carbon Dioxide 29 mmol/L (23-31); Chloride 99 mmol/L (98-107); Globulin 2.9 g/dL (2.4-3.5); Glucose 183 mg/dL (80-115); Magnesium 1.9 mg/dL (1.6-2.6); Phosphorus 2.7 mg/dL (2.3-4.7); Protein, Total 5.6 g/dL (5.8-8.1); Sodium 139 mmol/L (136-145)
[2020-11-12 11:54] LABS: Potassium 2.9 mmol/L (3.5-5.1)
[2020-11-12] MEDS: Potassium Chloride 20 MEQ in Premix Bag 1 BAG IVPB SCH ×3 (13:25→18:06)
[2020-11-12] MEDS ORDERED: Potassium Chloride 20 MEQ in Premix Bag 1 BAG IVPB SCH (14:00)
[2020-11-12 21:55] LABS: Potassium 3.7 mmol/L (3.5-5.1)
[2020-11-13] MEDS: Meropenem 2 GM, Admixture Fee 1 EACH in Sodium Chloride 0.9% 100 ML IVPB SCH ×4 (01:44→18:44)
[2020-11-13] MEDS: HumaLOG 300 UNITS/3 ML VIAL SC PRN ×5 (01:54→22:04)
[2020-11-13 04:05] LABS: Hemoglobin 8.7 g/dL (12.0-16.0); Mean Corpuscular Hemoglobin 29.8 pg (27.0-31.0); Mean Platelet Volume 7.7 fL (7.4-10.4); Platelet Count 286 thou/uL (130-400); RBC Distribution Width 13.2 % (11.5-14.5); Red Blood Cell (RBC) Count 2.92 mill/uL (4.20-5.40)
[2020-11-13 04:15] LABS: Anion Gap 14 mmol/L (10-20); BUN (Urea Nitrogen) 13 mg/dL (9.8-20.1); Calc. Creatinine Clearance 60 mL/min (70-130); Calcium 7.8 mg/dL (7.8-10.44); Carbon Dioxide 30 mmol/L (23-31); Chloride 97 mmol/L (98-107); Glucose 170 mg/dL (80-115); Magnesium 1.7 mg/dL (1.6-2.6); Potassium 3.3 mmol/L (3.5-5.1); Sodium 138 mmol/L (136-145)
[2020-11-13 04:17] LABS: Phosphorus 2.9 mg/dL (2.3-4.7)
[2020-11-13 04:26] LABS: Band 6 % (5-11); Eosinophils 5 % (0-10); Lymphocytes 16 % (21-51); MDiff Complete? YES; Monocytes 12 % (0-10); Neutrophil 60 % (42-75); Reactive Lymphocytes 1 % (0-10)
[2020-11-13] MEDS ORDERED: Magnesium 2 GM/50 ML 2 GM in Premix Bag 1 BAG IVPB SCH (06:45)
[2020-11-13] MEDS ORDERED: Potassium Chloride 40 MEQ in Sodium Chloride 0.9% 250 ML 250 ML IVPB SCH (07:45)
[2020-11-13] MEDS: Calcitriol 0.25 MCG CAP PO SCH (09:19)
[2020-11-13] MEDS: ALPRAZolam 0.25 MG TAB PER TUBE SCH ×4 (09:19→22:06)
[2020-11-13] MEDS: Famotidine/PF 20 mg/2ml Vial SLOW IVP SCH ×2 (09:20→21:50)
[2020-11-13] MEDS: Heparin 5,000 UNITS/ML VIAL SC SCH ×2 (09:20→22:07)
[2020-11-13] MEDS: Calcium Carbonate 500 MG ChewTAB PER TUBE SCH ×4 (09:20→21:50)
[2020-11-13] MEDS: Senokot S 8.6-50 MG TAB PO SCH ×2 (09:20→22:06)
[2020-11-13] MEDS: PHOS-NAK 1 PKT PACK PO SCH ×3 (09:20→22:05)
[2020-11-13] MEDS: Furosemide 40 MG/4 ML VIAL SLOW IVP SCH (09:21)
[2020-11-13] MEDS: NPH, Human Insulin Isophane 300 UNIT/3 ML VIAL SC SCH ×2 (09:21→22:09)
[2020-11-13] MEDS ORDERED: Calcitriol 0.25 MCG CAP PO SCH (10:45)
[2020-11-13 17:15] LABS: Potassium 3.8 mmol/L (3.5-5.1)
[2020-11-14] MEDS: Meropenem 2 GM, Admixture Fee 1 EACH in Sodium Chloride 0.9% 100 ML IVPB SCH ×3 (01:15→16:48)
[2020-11-14 05:08] LABS: Hemoglobin 10.3 g/dL (12.0-16.0); Mean Corpuscular HGB CONC 31.7 g/dL (32.0-36.0); Mean Corpuscular Hemoglobin 29.6 pg (27.0-31.0); Mean Corpuscular Volume 93.5 fL (78.0-98.0); Mean Platelet Volume 7.5 fL (7.4-10.4); Platelet Count 331 thou/uL (130-400); RBC Distribution Width 13.4 % (11.5-14.5); Red Blood Cell (RBC) Count 3.47 mill/uL (4.20-5.40); White Blood Cell (WBC) Count 5.5 thou/uL (4.8-10.8)
[2020-11-14 05:32] LABS: Anion Gap 15 mmol/L (10-20); BUN (Urea Nitrogen) 18 mg/dL (9.8-20.1); Calc. Creatinine Clearance 51 mL/min (70-130); Carbon Dioxide 30 mmol/L (23-31); Chloride 95 mmol/L (98-107); Glucose 139 mg/dL (80-115); Magnesium 1.8 mg/dL (1.6-2.6); Potassium 3.9 mmol/L (3.5-5.1); Sodium 136 mmol/L (136-145)
[2020-11-14 05:33] LABS: Band 16 % (5-11); Eosinophils 7 % (0-10); Hypochromia SLIGHT = 6-15 cells (100X) (0-5/hpf); Lymphocytes 8 % (21-51); MDiff Complete? YES; Monocytes 1 % (0-10); Neutrophil 68 % (42-75)
[2020-11-14] MEDS ORDERED: Magnesium 2 GM/50 ML 2 GM in Premix Bag 1 BAG IVPB SCH (07:45)
[2020-11-14] MEDS: HumaLOG 300 UNITS/3 ML VIAL SC PRN ×2 (08:17→12:36)
[2020-11-14] MEDS: Furosemide 40 MG/4 ML VIAL SLOW IVP SCH (08:33)
[2020-11-14] MEDS: ALPRAZolam 0.25 MG TAB PER TUBE SCH ×4 (08:33→20:46)
[2020-11-14] MEDS: Calcitriol 0.25 MCG CAP PO SCH (08:33)
[2020-11-14] MEDS: Heparin 5,000 UNITS/ML VIAL SC SCH ×2 (08:33→20:48)
[2020-11-14] MEDS: Calcium Carbonate 500 MG ChewTAB PER TUBE SCH ×3 (08:33→20:47)
[2020-11-14] MEDS: Famotidine/PF 20 mg/2ml Vial SLOW IVP SCH ×2 (08:33→20:48)
[2020-11-14] MEDS: Senokot S 8.6-50 MG TAB PO SCH ×2 (08:34→20:47)
[2020-11-14] MEDS: PHOS-NAK 1 PKT PACK PO SCH ×2 (08:34→20:48)
[2020-11-14] MEDS: NPH, Human Insulin Isophane 300 UNIT/3 ML VIAL SC SCH ×2 (08:35→20:49)
[2020-11-15] MEDS: Meropenem 2 GM, Admixture Fee 1 EACH in Sodium Chloride 0.9% 100 ML IVPB SCH ×3 (01:02→17:02)
[2020-11-15 05:42] LABS: Phosphorus 4.6 mg/dL (2.3-4.7)
[2020-11-15 05:44] LABS: Anion Gap 12 mmol/L (10-20); BUN (Urea Nitrogen) 23 mg/dL (9.8-20.1); Calc. Creatinine Clearance 41 mL/min (70-130); Calcium 8.9 mg/dL (7.8-10.44); Carbon Dioxide 30 mmol/L (23-31); Chloride 95 mmol/L (98-107); Glucose 248 mg/dL (80-115); Magnesium 1.8 mg/dL (1.6-2.6); Sodium 134 mmol/L (136-145)
[2020-11-15 05:48] LABS: Eosinophils 3 % (0-10); Hemoglobin 9.2 g/dL (12.0-16.0); Lymphocytes 23 % (21-51); MDiff Complete? YES; Mean Corpuscular HGB CONC 33.1 g/dL (32.0-36.0); Mean Corpuscular Hemoglobin 30.6 pg (27.0-31.0); Mean Corpuscular Volume 92.6 fL (78.0-98.0); Mean Platelet Volume 7.6 fL (7.4-10.4); Monocytes 3 % (0-10); Neutrophil 69 % (42-75); Platelet Count 321 thou/uL (130-400); Platelet Morphology Comment Appears Adequate; RBC Distribution Width 13.3 % (11.5-14.5); White Blood Cell (WBC) Count 4.4 thou/uL (4.8-10.8)
[2020-11-15] MEDS ORDERED: Magnesium 2 GM/50 ML 2 GM in Premix Bag 1 BAG IVPB SCH (06:30)
[2020-11-15] MEDS: Potassium Chloride 20 MEQ in Premix Bag 1 BAG IVPB SCH ×2 (08:01→11:10)
[2020-11-15] MEDS: ALPRAZolam 0.25 MG TAB PER TUBE SCH ×4 (10:18→20:43)
[2020-11-15] MEDS: PHOS-NAK 1 PKT PACK PO SCH ×2 (10:18→20:44)
[2020-11-15] MEDS: Calcitriol 0.25 MCG CAP PO SCH (10:18)
[2020-11-15] MEDS: Senokot S 8.6-50 MG TAB PO SCH ×2 (10:18→20:44)
[2020-11-15] MEDS: Calcium Carbonate 500 MG ChewTAB PER TUBE SCH ×3 (10:18→20:44)
[2020-11-15] MEDS: Famotidine/PF 20 mg/2ml Vial SLOW IVP SCH (10:18)
[2020-11-15] MEDS: Heparin 5,000 UNITS/ML VIAL SC SCH ×2 (10:19→20:43)
[2020-11-15] MEDS: NPH, Human Insulin Isophane 300 UNIT/3 ML VIAL SC SCH ×2 (10:19→20:45)
[2020-11-15] MEDS: Furosemide 40 MG/4 ML VIAL SLOW IVP SCH (10:19)
[2020-11-15] MEDS: Haloperidol Lactate 5 MG/ML VIAL SLOW IVP PRN ×2 (11:44→15:13)
[2020-11-15 12:58] VITALS: BMI 28.7
[2020-11-15] MEDS: HumaLOG 300 UNITS/3 ML VIAL SC PRN (13:22)
[2020-11-15 13:41] LABS: Magnesium 2.2 mg/dL (1.6-2.6); Potassium 4.1 mmol/L (3.5-5.1)
[2020-11-15 14:44] VITALS: BP 126/76
[2020-11-15] MEDS: Acetaminophen 650 MG Suppository PR PRN (16:32)
[2020-11-15 17:25] VITALS: TEMP 99.8
[2020-11-15] MEDS ORDERED: Sodium Chloride 0.9% 100 ML ONE (21:17)
[2020-11-16] MEDS ORDERED: Famotidine/PF 20 mg/2ml Vial SLOW IVP SCH (09:00)
== END 2020-11-15 21:20 | DRG 4 ==
LOC: ERS 01:04 → CCU 02:17
PROVIDERS: ADMIT Family Medicine; ATTEND Family Medicine
PROC: 02H633Z Insertion of Infusion Device into Right Atrium, Percutaneous Approach (ICD-10-PCS; principal; 2020-10-30)
PROC: B548ZZA Ultrasonography of Superior Vena Cava, Guidance (ICD-10-PCS; 2020-10-30)
PROC: 3E043XZ Introduction of Vasopressor into Central Vein, Percutaneous Approach (ICD-10-PCS; 2020-10-30)
PROC: 5A1955Z Respiratory Ventilation, Greater than 96 Consecutive Hours (ICD-10-PCS; 2020-10-30)
PROC: 5A1D70Z Performance of Urinary Filtration, Intermittent, Less than 6 Hours Per Day (ICD-10-PCS; 2020-10-30)
PROC: 04HY32Z Insertion of Monitoring Device into Lower Artery, Percutaneous Approach (ICD-10-PCS; 2020-10-30)
PROC: 02H633Z Insertion of Infusion Device into Right Atrium, Percutaneous Approach (ICD-10-PCS; 2020-10-30)
PROC: 0B110F4 Bypass Trachea to Cutaneous with Tracheostomy Device, Open Approach (ICD-10-PCS; 2020-11-09)
PROC: 0DH63UZ Insertion of Feeding Device into Stomach, Percutaneous Approach (ICD-10-PCS; 2020-11-09)
PROC: 30233N1 Transfusion of Nonautologous Red Blood Cells into Peripheral Vein, Percutaneous Approach (ICD-10-PCS; 2020-11-11)
DX: A41.9 Sepsis, unspecified organism (principal); R65.21 Severe sepsis with septic shock; J18.9 Pneumonia, unspecified organism; J96.01 Acute respiratory failure with hypoxia; G92 Toxic encephalopathy; K85.90 Acute pancreatitis without necrosis or infection, unspecified; N17.0 Acute kidney failure with tubular necrosis; E87.2 Acidosis; E72.20 Disorder of urea cycle metabolism, unspecified; K56.7 Ileus, unspecified; K92.2 Gastrointestinal hemorrhage, unspecified; E87.0 Hyperosmolality and hypernatremia; D62 Acute posthemorrhagic anemia; Z79.82 Long term (current) use of aspirin; Z79.4 Long term (current) use of insulin; Z95.5 Presence of coronary angioplasty implant and graft; E87.5 Hyperkalemia; E87.6 Hypokalemia; I12.9 Hypertensive chronic kidney disease with stage 1 through stage 4 chronic kidney disease, or unspecified chronic kidney disease; E11.22 Type 2 diabetes mellitus with diabetic chronic kidney disease; E83.51 Hypocalcemia; E83.42 Hypomagnesemia; E83.39 Other disorders of phosphorus metabolism; K59.00 Constipation, unspecified; I45.81 Long QT syndrome; N18.30 Chronic kidney disease, stage 3 unspecified; I25.10 Atherosclerotic heart disease of native coronary artery without angina pectoris; Z78.1 Physical restraint status
CPT/HCPCS: 36415; 36416; 36430; 36556; 36600; 70450; 71045; 72125; 72128; 72131; 74176; 76705; 80048; 80053; 80202; 82306; 82550; 82570; 82607; 82746; 82805; 83605; 83690; 83735; 83935; 83970; 84100; 84145; 84300; 84443; 84540; 85007; 85025; 85027; 85049; 85300; 85362; 85379; 85384; 85610; 85730; 86704; 86706; 86803; 86850; 86870; 86900; 86901; 86922; 87040; 87070; 87077; 87186; 87205; 87340; 90935; 93306; 94002; 94003; 94640; 96365; 96366; C9113; G0257; J0692; J1630; J1644; J1720; J1815; J1940; J2001; J2060; J2185; J2250; J2270; J3010; J3370; J3475; J3480; J3490; J7030; J7050; J7070; J7620; P9016; P9047; P9059; S0020; S0028

== ENCOUNTER 2020-12-30 10:15 | Emergency (ER) | payer MEDICARE | END 2020-12-30 12:50 | disposition home or self-care (01) | LOC: ERS 10:15 | DX: Z43.1 Encounter for attention to gastrostomy (principal); E11.9 Type 2 diabetes mellitus without complications; E78.5 Hyperlipidemia, unspecified; E78.00 Pure hypercholesterolemia, unspecified; I10 Essential (primary) hypertension; Z86.73 Personal history of transient ischemic attack (TIA), and cerebral infarction without residual deficits; Z79.84 Long term (current) use of oral hypoglycemic drugs; Z79.82 Long term (current) use of aspirin; Z79.899 Other long term (current) drug therapy | CPT/HCPCS: 99282 ==

== ENCOUNTER 2021-01-06 11:43 | Inpatient (IN) | payer MEDICARE ==
[2021-01-06] MEDS ORDERED: Ondansetron PF 4 MG/2 ML Vial ONE (13:19)
[2021-01-06] MEDS ORDERED: Ondansetron PF 4 MG/2 ML Vial IVP PRN (14:05)
[2021-01-06] MEDS ORDERED: Calcium Carbonate 500 MG ChewTAB PO PRN (14:05)
[2021-01-06] MEDS ORDERED: HumaLOG 300 UNITS/3 ML VIAL SC PRN (14:05)
[2021-01-06] MEDS ORDERED: Dextrose 5% in Water 1,000 ML IV PRN (14:05)
[2021-01-06] MEDS ORDERED: Dextrose 50% Abboject 50 ML SYRINGE SLOW IVP PRN (14:05)
[2021-01-06] MEDS ORDERED: Guaifenesin DM 100-10/5 ML UDCUP PO PRN (14:05)
[2021-01-06] MEDS ORDERED: Acetaminophen 325 MG TAB PO PRN (14:05)
[2021-01-06 14:45] LABS: Bilirubin Negative (Negative); Blood, Urine Negative (Negative); Clarity Clear (Clear); Glucose, Urine (Dipstick) Normal (Negative); Ketone, Urine Negative (Negative); Leukocyte Negative Leu/uL (Negative); Nitrite Negative (Negative); Protein, Urine (Dipstick) Negative (Neg-Trace); Specific Gravity, Urine 1.012 (1.002-1.036); Urobilinogen Normal mg/dL (Less than 2); pH, Urine 5.5 (5.0-9.0)
[2021-01-06] MEDS ORDERED: Sodium Chloride 0.9% (PF) 10 ML VIAL FS PRN (14:45)
[2021-01-06 14:50] LABS: #Eosinphils 0.1 thou/uL (0.0-0.7); #Lymphocytes 3.4 thou/uL (1.20-3.40); %Basophils 0.2 % (0.0-1.0); %Lymphocytes 32.5 % (21.0-51.0); %Monocytes 9.2 % (0.0-10.0); %Neutrophils 57.1 % (42.0-75.0); Mean Corpuscular HGB CONC 34.8 g/dL (32.0-36.0); Mean Corpuscular Hemoglobin 32.1 pg (27.0-31.0); Mean Corpuscular Volume 92.2 fL (78.0-98.0); Mean Platelet Volume 7.9 fL (7.4-10.4); Platelet Count 255 thou/uL (130-400); RBC Distribution Width 13.4 % (11.5-14.5); White Blood Cell (WBC) Count 10.5 thou/uL (4.8-10.8)
[2021-01-06] MEDS ORDERED: Lidocaine 1% PF 5 ML VIAL ONE (14:57)
[2021-01-06] MEDS ORDERED: PROPOFOL 200 MG/20 ML VIAL ONE (14:57)
[2021-01-06] MEDS ORDERED: EPINEPHrine 1 MG/10 ML Abboject SYRINGE ONE (14:57)
[2021-01-06 15:17] LABS: ALT (SGPT) 7 U/L (8-55); AST (SGOT) 12 U/L (5-34); Alkaline Phosphatase 30 U/L (40-110); Anion Gap 12 mmol/L (10-20); BUN (Urea Nitrogen) 38 mg/dL (9.8-20.1); Bilirubin, Total 0.9 mg/dL (0.2-1.2); Calc. Creatinine Clearance 0 mL/min (70-130); Calcium 8.1 mg/dL (7.8-10.44); Carbon Dioxide 21 mmol/L (23-31); Chloride 107 mmol/L (98-107); Globulin 2.4 g/dL (2.4-3.5); Glucose 158 mg/dL (83-110); Lipase 61 U/L (8-78); Potassium 4.4 mmol/L (3.5-5.1); Protein, Total 5.4 g/dL (5.8-8.1); Sodium 136 mmol/L (136-145)
[2021-01-06 15:25] LABS: SARS-CoV-2 NAA Rapid Test Not Detected (NotDetected)
[2021-01-06] MEDS: ALPRAZolam 0.25 MG TAB PER TUBE SCH ×2 (18:09→20:14)
[2021-01-06 18:14] VITALS: BMI 23.2
[2021-01-06] MEDS: Pantoprazole 40 MG VIAL IVP SCH (20:13)
[2021-01-06 20:37] LABS: Hemoglobin 8.8 g/dL (12.0-16.0)
[2021-01-06] MEDS ORDERED: Pantoprazole 40 MG VIAL IVP SCH (21:00)
[2021-01-06] MEDS ORDERED: Carvedilol 6.25 MG TAB PO SCH (21:00)
[2021-01-07 04:40] LABS: #Basophils 0.1 thou/uL (0.0-0.2); #Eosinphils 0.5 thou/uL (0.0-0.7); #Lymphocytes 2.6 thou/uL (1.20-3.40); #Monocytes 0.7 thou/uL (0.11-0.59); #Neutrophils 3.8 thou/uL (1.40-6.50); %Basophils 1.3 % (0.0-1.0); %Eosinophils 6.1 % (0.0-10.0); %Lymphocytes 33.6 % (21.0-51.0); %Monocytes 9.2 % (0.0-10.0); %Neutrophils 49.9 % (42.0-75.0); Hemoglobin 7.8 g/dL (12.0-16.0); Mean Corpuscular HGB CONC 35.8 g/dL (32.0-36.0); Mean Corpuscular Hemoglobin 32.6 pg (27.0-31.0); Mean Corpuscular Volume 91.1 fL (78.0-98.0); Platelet Count 240 thou/uL (130-400); RBC Distribution Width 13.9 % (11.5-14.5); White Blood Cell (WBC) Count 7.7 thou/uL (4.8-10.8)
[2021-01-07 05:00] LABS: ALT (SGPT) Less than 7 U/L (8-55); AST (SGOT) 10 U/L (5-34); Albumin 2.6 g/dL (3.4-4.8); Alkaline Phosphatase 27 U/L (40-110); Anion Gap 9 mmol/L (10-20); BUN (Urea Nitrogen) 32 mg/dL (9.8-20.1); Bilirubin, Total 0.3 mg/dL (0.2-1.2); Calc. Creatinine Clearance 51 mL/min (70-130); Calcium 7.8 mg/dL (7.8-10.44); Carbon Dioxide 22 mmol/L (23-31); Chloride 110 mmol/L (98-107); Globulin 2.1 g/dL (2.4-3.5); Glucose 131 mg/dL (83-110); Potassium 3.5 mmol/L (3.5-5.1); Protein, Total 4.7 g/dL (5.8-8.1); Sodium 137 mmol/L (136-145)
[2021-01-07] MEDS ORDERED: Electrolyte Replacement Protocol 1 EACH FS PRN (08:30)
[2021-01-07 08:41] LABS: Magnesium 1.5 mg/dL (1.6-2.6); Phosphorus 2.7 mg/dL (2.3-4.7)
[2021-01-07] MEDS ORDERED: Potassium Chloride 20 MEQ TAB PO SCH (08:45)
[2021-01-07] MEDS ORDERED: Magnesium Sulfate 4 GM in Sodium Chloride 0.9% 250 ML 250 ML IVPB SCH (09:00)
[2021-01-07] MEDS: Cyanocobalamin (Vitamin B-12) 1,000 MCG TAB PER TUBE SCH (10:03)
[2021-01-07] MEDS: Calcitriol 0.25 MCG CAP PO SCH (10:03)
[2021-01-07] MEDS: ALPRAZolam 0.25 MG TAB PER TUBE SCH ×4 (10:03→21:37)
[2021-01-07] MEDS: Atorvastatin Calcium 40 MG TAB PER TUBE SCH (10:03)
[2021-01-07] MEDS: Pantoprazole 40 MG VIAL IVP SCH ×2 (10:04→21:38)
[2021-01-07] MEDS: Carvedilol 3.125 MG TAB PO SCH (16:26)
[2021-01-07] MEDS: HumaLOG 300 UNITS/3 ML VIAL SC PRN (18:06)
[2021-01-08 04:39] LABS: Hemoglobin 7.5 g/dL (12.0-16.0); Platelet Count 223 thou/uL (130-400)
[2021-01-08] MEDS: ALPRAZolam 0.25 MG TAB PER TUBE SCH ×4 (09:54→21:30)
[2021-01-08] MEDS: Cyanocobalamin (Vitamin B-12) 1,000 MCG TAB PER TUBE SCH (09:55)
[2021-01-08] MEDS: Carvedilol 3.125 MG TAB PO SCH ×2 (09:55→17:49)
[2021-01-08] MEDS: Pantoprazole 40 MG VIAL IVP SCH (09:55)
[2021-01-08] MEDS: Calcitriol 0.25 MCG CAP PO SCH (09:55)
[2021-01-08] MEDS: Atorvastatin Calcium 40 MG TAB PER TUBE SCH (09:55)
[2021-01-08] MEDS: HumaLOG 300 UNITS/3 ML VIAL SC PRN ×2 (11:52→17:49)
[2021-01-08] MEDS: Pantoprazole 40 MG GRANULES PACKET PER TUBE SCH (21:29)
[2021-01-09 04:20] VITALS: TEMP 98.5
[2021-01-09 04:47] LABS: #Eosinphils 0.4 thou/uL (0.0-0.7); #Lymphocytes 1.5 thou/uL (1.20-3.40); #Monocytes 0.6 thou/uL (0.11-0.59); #Neutrophils 2.6 thou/uL (1.40-6.50); %Basophils 0.9 % (0.0-1.0); %Eosinophils 8.3 % (0.0-10.0); %Lymphocytes 28.5 % (21.0-51.0); %Monocytes 11.3 % (0.0-10.0); Hemoglobin 7.2 g/dL (12.0-16.0); Mean Corpuscular HGB CONC 33.4 g/dL (32.0-36.0); Mean Corpuscular Hemoglobin 31.3 pg (27.0-31.0); Mean Corpuscular Volume 93.8 fL (78.0-98.0); Mean Platelet Volume 7.8 fL (7.4-10.4); Platelet Count 275 thou/uL (130-400); Red Blood Cell (RBC) Count 2.31 mill/uL (4.20-5.40); White Blood Cell (WBC) Count 5.1 thou/uL (4.8-10.8)
[2021-01-09 05:09] LABS: Anion Gap 13 mmol/L (10-20); BUN (Urea Nitrogen) 10 mg/dL (9.8-20.1); Calc. Creatinine Clearance 56 mL/min (70-130); Calcium 7.8 mg/dL (7.8-10.44); Carbon Dioxide 18 mmol/L (23-31); Chloride 112 mmol/L (98-107); Glucose 128 mg/dL (83-110); Magnesium 1.8 mg/dL (1.6-2.6); Potassium 3.9 mmol/L (3.5-5.1); Sodium 139 mmol/L (136-145)
[2021-01-09] MEDS ORDERED: Magnesium 2 GM/50 ML 2 GM in Premix Bag 1 BAG IVPB SCH (06:30)
[2021-01-09 08:51] VITALS: BP 121/62
[2021-01-09] MEDS: Atorvastatin Calcium 40 MG TAB PER TUBE SCH (09:48)
[2021-01-09] MEDS: ALPRAZolam 0.25 MG TAB PER TUBE SCH (09:48)
[2021-01-09] MEDS: Calcitriol 0.25 MCG CAP PO SCH (09:48)
[2021-01-09] MEDS: Pantoprazole 40 MG GRANULES PACKET PER TUBE SCH (09:48)
[2021-01-09] MEDS: Carvedilol 3.125 MG TAB PO SCH (09:48)
[2021-01-09] MEDS: Cyanocobalamin (Vitamin B-12) 1,000 MCG TAB PER TUBE SCH (09:49)
[2021-01-10 18:36] LABS: H. pylori IgA ABS Less than 9.0 units (0.0-8.9); H. pylori IgG ABS 0.53 (0.00-0.79); H. pylori IgM ABS Less than 9.0 units (0.0-8.9)
== END 2021-01-09 12:00 | disposition home or self-care (01) | DRG 378 ==
LOC: ERS 11:43 → ERHOLD 12:49 → SURG A 15:56 → 2NO 16:50
PROVIDERS: ADMIT Internal Medicine; ATTEND Internal Medicine
PROC: 0W3P8ZZ Control Bleeding in Gastrointestinal Tract, Via Natural or Artificial Opening Endoscopic (ICD-10-PCS; principal; 2021-01-06)
PROC: 30233N1 Transfusion of Nonautologous Red Blood Cells into Peripheral Vein, Percutaneous Approach (ICD-10-PCS; 2021-01-06)
DX: K25.4 Chronic or unspecified gastric ulcer with hemorrhage (principal); D62 Acute posthemorrhagic anemia; Z20.822 Contact with and (suspected) exposure to COVID-19; E78.5 Hyperlipidemia, unspecified; E78.00 Pure hypercholesterolemia, unspecified; I25.10 Atherosclerotic heart disease of native coronary artery without angina pectoris; F41.9 Anxiety disorder, unspecified; E11.22 Type 2 diabetes mellitus with diabetic chronic kidney disease; D53.9 Nutritional anemia, unspecified; N18.2 Chronic kidney disease, stage 2 (mild); I12.9 Hypertensive chronic kidney disease with stage 1 through stage 4 chronic kidney disease, or unspecified chronic kidney disease; E83.42 Hypomagnesemia; E87.6 Hypokalemia; Z86.73 Personal history of transient ischemic attack (TIA), and cerebral infarction without residual deficits; Z79.4 Long term (current) use of insulin; Z88.5 Allergy status to narcotic agent; Z79.82 Long term (current) use of aspirin; Z79.899 Other long term (current) drug therapy; Z95.5 Presence of coronary angioplasty implant and graft; Z98.890 Other specified postprocedural states
CPT/HCPCS: 36415; 36416; 80048; 80053; 83690; 83735; 83880; 84100; 84484; 85014; 85018; 85025; 85049; 86850; 86900; 86901; 86922; 93005; C9113; J0171; J1815; J2405; J2704; J3475; J7050; U0002; U0005

== ENCOUNTER 2024-07-17 11:58 | Observation (INO) | payer MEDICARE ==
[2024-07-17 14:56] VITALS: BMI 24.5
[2024-07-17] MEDS ORDERED: Ondansetron ODT 4 MG TAB PO PRN (15:26)
[2024-07-17] MEDS ORDERED: Senokot S 8.6-50 MG TAB PO PRN (15:26)
[2024-07-17] MEDS ORDERED: Acetaminophen 325 MG TAB PO PRN (15:26)
[2024-07-17] MEDS ORDERED: Bisacodyl 5 MG TAB PO PRN (15:26)
[2024-07-17] MEDS ORDERED: Insulin Lispro 100 UNIT/ML 10 ML VIAL SC PRN (15:28)
[2024-07-17] MEDS ORDERED: Dextrose 50% Abboject 50 ML SYRINGE SLOW IVP PRN (15:28)
[2024-07-17] MEDS ORDERED: Dextrose 5% in Water 1,000 ML IV PRN (15:28)
[2024-07-17] MEDS ORDERED: Glucagon 1 MG/ML KIT IM PRN (15:28)
[2024-07-17] MEDS ORDERED: Meclizine HCl 25 MG TAB PO PRN (15:29)
[2024-07-17] MEDS: Meclizine HCl 25 MG TAB PO SCH (16:12)
[2024-07-17] MEDS: Lactated Ringer's 1,000 ML IV SCH (16:12)
[2024-07-17] MEDS: Insulin Lispro 100 UNIT/ML 10 ML VIAL SC PRN (18:17)
[2024-07-17] MEDS ORDERED: Docusate 100 MG CAP PO PRN (18:21)
[2024-07-17] MEDS: Carvedilol 3.125 MG TAB PO SCH (20:13)
[2024-07-17] MEDS: Atorvastatin Calcium 40 MG TAB PO SCH (20:13)
[2024-07-17] MEDS: HumuLIN 70/30 100 Unit/ml 10 ml Vial SC SCH (20:14)
[2024-07-17] MEDS: Heparin 5,000 UNITS/ML VIAL SC SCH (20:15)
[2024-07-18 04:34] LABS: #Basophils 0.06 10x3/uL (0.0-0.2); %Eosinophils 6.4 % (0.0-10.0); %Lymphocytes 38.4 % (21.0-51.0); %Monocytes 12.2 % (0.0-10.0); %Neutrophils 41.7 % (42.0-75.0); Hematocrit 31.3 % (36.0-47.0); Hemoglobin 10.4 g/dL (12.0-16.0); Mean Corpuscular HGB CONC 33.2 g/dL (32.0-36.0); Mean Corpuscular Hemoglobin 30.1 pg (27.0-31.0); Mean Corpuscular Volume 90.5 fL (78.0-98.0); Mean Platelet Volume 10.1 fL (7.4-10.4); Platelet Count 306 10x3/uL (130-400); RBC Distribution Width 13.4 % (11.5-14.5); Red Blood Cell (RBC) Count 3.46 mill/uL (4.20-5.40)
[2024-07-18 05:07] LABS: Anion Gap 14 mmol/L (10-20); BUN (Urea Nitrogen) 17 mg/dL (9.8-20.1); Calc. Creatinine Clearance 47 mL/min (70-130); Calcium 8.8 mg/dL (7.8-10.44); Carbon Dioxide 25 mmol/L (23-31); Chloride 107 mmol/L (98-107); Estimated GFR 56; Glucose 100 mg/dL (83-110); Potassium 3.7 mmol/L (3.5-5.1); Sodium 142 mmol/L (136-145)
[2024-07-18] MEDS ORDERED: Electrolyte Replacement Protocol 1 EACH FS SCH (07:48)
[2024-07-18 08:37] LABS: Magnesium 1.3 mg/dL (1.6-2.6)
[2024-07-18] MEDS ORDERED: HumuLIN 70/30 100 Unit/ml 10 ml Vial SC SCH ×2 (09:00→17:00)
[2024-07-18] MEDS: Cholecalciferol 1,000 UNITS (25 MCG) TAB PO SCH (09:03)
[2024-07-18] MEDS: Aspirin 81 mg Enteric Coated Tablet PO SCH (09:03)
[2024-07-18] MEDS: Pantoprazole 40 MG DR.TAB PO SCH (09:04)
[2024-07-18] MEDS: Magnesium Sulfate In Water 4 GM in Premix 1 BAG IVPB SCH (10:38)
[2024-07-18 12:20] VITALS: BP 150/68; TEMP 98.3
== END 2024-07-18 13:12 | disposition home or self-care (01) ==
LOC: 2SE 12:53
PROVIDERS: ADMIT Internal Medicine; ATTEND Internal Medicine
DX: R42 Dizziness and giddiness (principal); E11.9 Type 2 diabetes mellitus without complications; I10 Essential (primary) hypertension; E83.42 Hypomagnesemia; D64.9 Anemia, unspecified; E78.5 Hyperlipidemia, unspecified; K21.9 Gastro-esophageal reflux disease without esophagitis; Z88.5 Allergy status to narcotic agent; Z95.1 Presence of aortocoronary bypass graft; Z79.82 Long term (current) use of aspirin; Z79.899 Other long term (current) drug therapy; Z79.84 Long term (current) use of oral hypoglycemic drugs; Z79.4 Long term (current) use of insulin
CPT/HCPCS: 80048; 82962 ×2; 83735; 85025; 96372; 96374; G0378 ×2; J1644; J1815; J3475; J7120; 36415; 36416